=== PATIENT | male | born 1950 | race Caucasian/White ===

== ENCOUNTER → 2016-09-06 | Outpatient (CLI) | payer OTHER ==
[~2016-09-06] MED LIST: ACIPHEX PO; AVINza PO; Arthrotec 50 PO; Bentyl PO; Cymbalta PO; Ecotrin PO; Flomax PO; Lyrica PO; OxyCODONE PO; Spiriva IH; Tenormin PO; Vytorin 10/40 PO; ZANAFLEX PO
== END | disposition home or self-care (01) ==
LOC: RAD 10:53
DX: M50.323 Other cervical disc degeneration at C6-C7 level (principal); I70.8 Atherosclerosis of other arteries; Z98.890 Other specified postprocedural states
CPT/HCPCS: 72126